=== PATIENT | female | born 1965 | race Caucasian/White ===

== ENCOUNTER 2018-01-13 14:47 | Inpatient (IN) | END 2018-01-16 16:00 | disposition home or self-care (01) | DRG 392 ==

== ENCOUNTER 2018-01-26 07:06 | Emergency (ER) | END 2018-01-26 13:25 | disposition home or self-care (01) ==

== ENCOUNTER 2018-02-01 14:56 | Emergency (ER) | END 2018-02-01 20:13 | disposition home or self-care (01) ==

== ENCOUNTER 2018-02-21 00:48 | Emergency (ER) | END 2018-02-21 04:42 | disposition home or self-care (01) ==